=== PATIENT | male | born 1990 | race African-American/Black ===

== ENCOUNTER 2021-04-05 23:06 | Emergency (ER) | payer MEDICAID ==
[~2021-04-05] VITALS: Ht 185.4 cm; Wt 75.0 kg
[2021-04-06] MEDS: ACETAMINOPHEN 325MG TABLET PO ONE (01:21)
[2021-04-06 01:32] LABS: BASOPHILS % 0.6 % (0.0-2.0); EOSINOPHILS % 1.9 % (0.0-5.0); HEMOGLOBIN. 13.2 g/dL (14.0-18.0); LYMPHOCYTES % 18.6 % (20.0-50.0); MEAN CORPUSCULAR HEMOGLOBIN 31.4 pg (28.0-32.0); MEAN CORPUSCULAR VOLUME 92.9 fL (80.0-94.0); MEAN PLATELET VOLUME 7.8 fl (7.4-10.4); MONOCYTES % 13.7 % (2.0-8.0); NEUTROPHILS % 65.2 % (40.0-76.0); PLATELET 220 x1000/uL (130-400); RED CELL DISTRIBUTION WIDTH 12.5 % (11.6-14.6)
[2021-04-06 01:41] LABS: CHLORIDE 104 mEq/L (98-107)
[2021-04-06] MEDS: SODIUM CHLORIDE 0.9% 1,000 ML IV ONE (03:03)
[2021-04-06] MEDS: ONDANSETRON HCL 4MG/2ML INJ IV STA (03:04)
[2021-04-06] MEDS: KETOROLAC 30MG/ML VIAL IV STA (03:08)
[2021-04-06] MEDS ORDERED: IBUP-2028 MT (06:43)
[2021-04-06 07:10] VITALS: BP 110/61
== END 2021-04-06 07:37 | disposition home or self-care (01) ==
LOC: ER 23:06
DX: R10.11 Right upper quadrant pain (principal); R11.2 Nausea with vomiting, unspecified
CPT/HCPCS: 36415; 76705; 80053; 85025; 96361; 96374; 96375; 99285; J1885; J2405; J7030